=== PATIENT | male | born 1995 | race Caucasian/White ===

== ENCOUNTER 2019-05-15 09:55 | Outpatient (CLI) | payer SELFPAY ==
--- NOTE | 2019-05-15 11:50 | RAD ---
RIGHT KNEE FOUR VIEWS: HISTORY: Injury. Right knee pain. FINDINGS: No acute fracture or dislocation is identified. If there is concern for meniscal or ligamentous injury further evaluation with MRI would be helpful. POS: [facility]
== END 2019-05-15 09:56 | disposition home or self-care (01) ==
LOC: SCSRAD 09:55
PROVIDERS: ATTEND Nurse Practitioner Family
DX: S89.91XA Unspecified injury of right lower leg, initial encounter (principal)